=== PATIENT | female | born 1990 | race Caucasian/White ===

== ENCOUNTER 2025-03-09 09:38 | Outpatient (RCR) | payer MEDICAID, SELFPAY ==
--- NOTE | 2025-03-09 10:00 | XR_ITS ---
Examination: DAVID, hepatobiliary radioisotope scan Gallbladder ejection fraction study. Date and time of exam: March 09, 2025 1018 hours INDICATIONS: Type 2 diabetes, diagnosis other specified diseases of the gallbladder Technique: 5.8 mCi of 99M Hepatolite administered. Serial imaging then obtained from immediate through 60 minutes. 2.4 mcg selective catheter Kinevac administered for gallbladder ejection fraction study. Findings: Radioisotope activity within the liver is reasonably homogenous. Gallbladder, common bile duct small bowel activity noted Impression: Gallbladder activity, normal gallbladder ejection fraction 37%, normal greater than 35%
[2025-03-09 10:24] LABS: HCG Qualitative,Urine Negative
== END 2025-03-14 23:59 | disposition home or self-care (01) ==
LOC: SNUC 09:38
PROVIDERS: Referring Provider Nurse Practitioner Family; Visit Provider Nurse Practitioner Family
DX: K82.8 Other specified diseases of gallbladder (principal)
CPT/HCPCS: 78227; 81025; A9537; J2805